=== PATIENT | male | born 1985 | race Caucasian/White ===

== ENCOUNTER 2017-07-15 15:57 | Emergency (ER) | payer BC ==
[~2017-07-15] VITALS: Ht 185.4 cm; Wt 113.6 kg
[~2017-07-15 15:57] MED LIST: PREDNISONE20 MG PO
[2017-07-15 16:09] VITALS: TEMP 98.8
[2017-07-15] MEDS ORDERED: AMBIEN 5MG TABLE5 MG PO (16:12)
[2017-07-15] MEDS ORDERED: FLEXERIL5 MG PO (16:13)
[2017-07-15 17:03] LABS: BASO % 0.2 % (0.0-2.0); EOS # 0.1 (0.0-0.7); EOS % 1.7 % (0-4.0); GRAN # 3.9 (1.4-6.5); GRAN % 59.4 % (42.2-75.2); HEMATOCRIT 41.1 % (42.0-52.0); HEMOGLOBIN 14.1 g/dl (13.5-18.0); MEAN CELL VOLUME 90 fl (80.0-100.0); MEAN CORPUSCULAR HEMOGLOBIN 31 pg (27.0-31.0); MEAN CORPUSCULAR HGB CONC 34 g/dl (33.0-37.0); MEAN PLATELET VOLUME 9.7 fl (7.4-10.4); MONO # 0.6 (0.1-0.6); MONO % 8.4 % (1.7-9.3); PLATELET COUNT 198 K/mm3 (130-400); RED BLOOD COUNT 4.59 M/mm3 (4.20-5.60); REDCELL DISTRIBUTION WIDTH-CV 12.5 % (11.5-14.5); WHITE BLOOD COUNT 6.5 K/mm3 (4.8-10.8)
[2017-07-15 17:09] LABS: PROTHROMBIN TIME 11.3 SECONDS (9.7-12.8)
[2017-07-15 17:12] LABS: PARTIAL THROMBOPLASTIN TIME 28.5 SECONDS (26.0-37.0)
[2017-07-15 17:18] LABS: ADJUSTED CALCIUM 9.1 mg/dL (8.4-10.2); ALANINE AMINOTRANSFERASE 98 U/L (21-72); ALBUMIN 4.4 gm/dL (3.5-5.0); ALKALINE PHOSPHATASE 43 U/L (50-136); ANION GAP 12 mmol/L (7-16); BILIRUBIN,TOTAL 0.8 mg/dL (0.0-1.0); BLOOD UREA NITROGEN 17 mg/dL (9-20); C-REACTIVE PROTEIN 0.7 mg/dL (0.0-0.9); CALCIUM 9.4 mg/dL (8.4-10.2); CARBON DIOXIDE 27 mmol/L (22-30); CHLORIDE 101 mmol/L (98-107); CREATININE, serum 0.92 mg/dL (0.66-1.25); GLUCOSE 103 mg/dL (74-106); SODIUM 140 mmol/L (137-145); TOTAL PROTEIN 7.4 gm/dL (6.4-8.2)
[2017-07-15 17:27] LABS: TROPONIN-I < 0.012 ng/mL (0.000-0.034)
[2017-07-15] MEDS ORDERED: PRINIVIL10 MG PO (17:53)
[2017-07-15] MEDS ORDERED: PROZAC 20MG20 MG PO (17:53)
[2017-07-15 17:55] VITALS: BP 140/102; PULSE 90
== END 2017-07-15 18:15 | disposition home or self-care (01) ==
LOC: COL.ER 15:57
PROVIDERS: Family Medicine
DX: I10 Essential (primary) hypertension (principal); F41.9 Anxiety disorder, unspecified
CPT/HCPCS: J2060